=== PATIENT | female | born 1975 | race Caucasian/White ===

== ENCOUNTER 2021-03-08 18:09 | Emergency (ER) | payer MEDICAID ==
[~2021-03-08] VITALS: Ht 152.4 cm; Wt 80.0 kg
[2021-03-08] MEDS ORDERED: AMOX-424 MT (18:48)
[2021-03-08] MEDS ORDERED: ACET-2708 MT (18:48)
[2021-03-08] MEDS ORDERED: IBUP-2029 MT (18:48)
[2021-03-08 19:00] VITALS: BP 154/94
[2021-03-08] MEDS ORDERED: KETOROLAC 60MG/2ML VIAL IM ONE (19:00)
[2021-03-08] MEDS ORDERED: ACETAMINOPHEN 325MG TABLET PO ONE (19:00)
[2021-03-08] MEDS ORDERED: AMOXICILLIN/POTASSIUM CLAVULANATE 875/125MG TAB PO ONE (19:00)
== END 2021-03-08 19:04 | disposition home or self-care (01) ==
LOC: ER 18:09
DX: K04.7 Periapical abscess without sinus (principal); I10 Essential (primary) hypertension
CPT/HCPCS: 96372; 99283; J1885

== ENCOUNTER 2021-03-10 17:45 | Emergency (ER) | payer MEDICAID ==
[~2021-03-10] VITALS: Ht 152.4 cm; Wt 79.0 kg
[~2021-03-10 17:45] MED LIST: ACET-2708 MT; AMOX-424 MT; IBUP-2029 MT
[2021-03-10] MEDS ORDERED: HYDR25TA MT (18:11)
[2021-03-10] MEDS ORDERED: AMLO5TAB88 MT (18:12)
[2021-03-10 18:17] VITALS: BP 128/80
== END 2021-03-10 18:21 | disposition home or self-care (01) ==
LOC: ER 17:45
DX: Z76.0 Encounter for issue of repeat prescription (principal); I10 Essential (primary) hypertension
CPT/HCPCS: 99282

== ENCOUNTER 2021-06-12 17:31 | Emergency (ER) | payer MEDICAID ==
[~2021-06-12] VITALS: Ht 152.4 cm; Wt 82.0 kg
[~2021-06-12 17:31] MED LIST changes: +AMLO5TAB88 MT; +HYDR25TA MT
[2021-06-12] MEDS ORDERED: IBUPROFEN 800MG TABLET PO SCH (18:30)
[2021-06-12 21:38] VITALS: BP 132/77
== END 2021-06-12 21:40 | disposition home or self-care (01) ==
LOC: ER 17:31
DX: S82.832A Other fracture of upper and lower end of left fibula, initial encounter for closed fracture (principal); I10 Essential (primary) hypertension; W50.2XXA Accidental twist by another person, initial encounter; Y93.89 Activity, other specified; Y92.89 Other specified places as the place of occurrence of the external cause; Y99.8 Other external cause status
CPT/HCPCS: 29515; 73610; 73700; 99284

== ENCOUNTER 2022-03-31 11:37 | Inpatient (IN) | payer MEDICAID ==
[~2022-03-31] VITALS: Ht 152.4 cm; Wt 73.0 kg
[2022-03-31] MEDS ORDERED: SODIUM CHLORIDE 0.9% 1,000 ML IV ONE (12:45)
[2022-03-31 13:27] LABS: BASOPHILS % 0.3 % (0.0-2.0); CHLORIDE 108 mEq/L (98-107); HEMATOCRIT. 44.5 % (36.0-48.0); HEMOGLOBIN. 14.9 g/dL (12.0-16.0); LYMPHOCYTES % 16.2 % (20.0-50.0); MEAN CORPUSCULAR HEMOGLOBIN 28.4 pg (28.0-32.0); MEAN CORPUSCULAR VOLUME 84.9 fL (81.0-99.0); MEAN PLATELET VOLUME 7.7 fl (7.4-10.4); NEUTROPHILS % 71.5 % (40.0-76.0); PLATELET 247 x1000/uL (130-400); RED BLOOD CELL COUNT 5.24 mill/uL (4.2-5.4); RED CELL DISTRIBUTION WIDTH 13.3 % (11.6-14.6)
[2022-03-31 13:35] LABS: ETHANOL BLOOD < 10 mg/dL
[2022-03-31] MEDS ORDERED: POTASSIUM CHLORIDE 20MEQ TABLET SR PO NR (14:15)
[2022-03-31] MEDS ORDERED: POTASSIUM CHLORIDE INJ 30 MEQ in DEXT 5%/0.9% NACL 1,000 ML IV ONE (14:15)
[2022-03-31 15:15] LABS: CLARITY URINE CLEAR (CLEAR); KETONES URINE NEGATIVE (NEGATIVE); LEUKOCYTE ESTERASE URINE TRACE (NEGATIVE); NITRITE URINE NEGATIVE (NEGATIVE); OCCULT BLOOD URINE 1+ (NEGATIVE); PROTEIN URINE TRACE (NEGATIVE); SPECIFIC GRAVITY URINE 1.006 (1.005-1.030); UROBILINOGEN URINE 0.2 E.U./dL (0.2-1.0)
[2022-03-31 15:20] LABS: UCG SCREEN NEGATIVE
[2022-04-01 02:30] VITALS: BP 126/76
[2022-04-01 02:45] VITALS: BP 126/76
[2022-04-01] MEDS ORDERED: HYDROCODONE/ACETAMINOPHEN 5/325MG TABLET PO PRN (03:15)
[2022-04-01] MEDS ORDERED: ACETAMINOPHEN 325MG TABLET PO PRN (03:15)
[2022-04-01] MEDS ORDERED: NALOXONE HCL 0.4MG/ML VIAL IV PRN (03:30)
[2022-04-01] MEDS ORDERED: AMLO10TA80 MT (04:32)
[2022-04-01 05:53] LABS: BASOPHILS % 0.7 % (0.0-2.0); EOSINOPHILS % 0.5 % (0.0-5.0); HEMATOCRIT. 40.2 % (36.0-48.0); HEMOGLOBIN. 13.8 g/dL (12.0-16.0); LYMPHOCYTES % 41.5 % (20.0-50.0); MEAN CORPUSCULAR VOLUME 84.4 fL (81.0-99.0); MEAN PLATELET VOLUME 7.6 fl (7.4-10.4); MONOCYTES % 13.4 % (2.0-8.0); NEUTROPHILS % 43.9 % (40.0-76.0); PLATELET 266 x1000/uL (130-400); RED BLOOD CELL COUNT 4.76 mill/uL (4.2-5.4); RED CELL DISTRIBUTION WIDTH 13.5 % (11.6-14.6)
[2022-04-01 08:00] VITALS: BP 129/86
[2022-04-01 09:13] LABS: CHLORIDE 111 mEq/L (98-107)
[2022-04-01] MEDS: ASPIRIN 81MG TABLET PO SCH (09:52)
[2022-04-01] MEDS: AMLODIPINE 10MG TABLET PO SCH (09:52)
[2022-04-01] MEDS ORDERED: PNEUMOCOCCAL 23-VAL P-SAC VAC 0.5 ML IM ONE (10:00)
[2022-04-01] MEDS ORDERED: INFLUENZA VACCINE 05/PF 0.5 ML SYRINGE IM ONE (10:00)
[2022-04-01 12:00] VITALS: BP 140/83
[2022-04-01] MEDS ORDERED: ONDANSETRON HCL 4MG/2ML INJ IV PRN (12:00)
[2022-04-01 16:00] VITALS: BP 132/88
[2022-04-01 20:00] VITALS: BP_SYST 122; BP_SYST 133; BP_SYST 142; BP_DIAS 68; BP_DIAS 80; BP_DIAS 87
[2022-04-01] MEDS ORDERED: CLONIDINE 0.1MG TABLET PO PRN (20:30)
[2022-04-01] MEDS ORDERED: NON FORMULARY PATIENT HOME MED XX SCH (20:30)
[2022-04-01] MEDS ORDERED: MELATONIN 3MG TABLET PO PRN (21:00)
[2022-04-02] VITALS: BP 114/81
[2022-04-02 04:00] VITALS: BP 129/69
[2022-04-02] MEDS: ASPIRIN 81MG TABLET PO SCH (08:40)
[2022-04-02] MEDS: AMLODIPINE 10MG TABLET PO SCH (08:40)
[2022-04-02 12:00] VITALS: BP 133/78
[2022-04-02 14:09] LABS: COLOR URINE YELLOW (YELLOW)
[2022-04-02 14:15] VITALS: BP 133/78
== END 2022-04-02 15:35 | disposition home or self-care (01) | DRG 48 ==
LOC: ER 11:41 → EDBEDREQ 14:13 → 8WST 15:56 → EDBEDREQTM 16:09 → EDBEDREQ 16:09 → ENRESERV 04-01 00:45
PROVIDERS: ADMIT Internal Medicine; ATTEND Internal Medicine
DX: G90.8 Other disorders of autonomic nervous system (principal); E44.0 Moderate protein-calorie malnutrition; J06.9 Acute upper respiratory infection, unspecified; I10 Essential (primary) hypertension; E66.9 Obesity, unspecified; E87.6 Hypokalemia; Z20.822 Contact with and (suspected) exposure to COVID-19; Z68.31 Body mass index [BMI] 31.0-31.9, adult
CPT/HCPCS: 36415; 71045; 80048; 80053; 80320; 81003; 81025; 82962; 83735; 84484; 85025; 87426; 90686; 90732; 93005; 93306; 93880; 99285; C9803; J3480; J7030; J7042; G0480

== ENCOUNTER 2023-04-07 19:10 | Emergency (ER) | payer MEDICAID ==
[~2023-04-07] VITALS: Ht 154.9 cm; Wt 70.0 kg
[~2023-04-07 19:10] MED LIST changes: +AMLO10TA80 MT; -AMLO5TAB88 MT; -AMOX-424 MT
[2023-04-07 19:24] VITALS: O2SAT 99
[2023-04-07] MEDS ORDERED: IBUP-2028 MT (20:25)
[2023-04-07] MEDS ORDERED: CYCL5TAB MT (20:25)
[2023-04-07] MEDS ORDERED: TOPUD MT (20:25)
[2023-04-07] MEDS ORDERED: KETOROLAC 60MG/2ML VIAL IM NR (20:30)
[2023-04-07] MEDS ORDERED: ACETAMINOPHEN 325MG TABLET PO NR (20:30)
[2023-04-07] MEDS ORDERED: KETOROLAC 60MG/2ML VIAL IM ONE (20:30)
[2023-04-07] MEDS ORDERED: ACETAMINOPHEN 325MG TABLET PO ONE (20:30)
[2023-04-07 21:29] LABS: CLARITY URINE CLOUDY (CLEAR); COLOR URINE YELLOW (YELLOW); GLUCOSE URINE NEGATIVE (NEGATIVE); KETONES URINE NEGATIVE (NEGATIVE); LEUKOCYTE ESTERASE URINE TRACE (NEGATIVE); NITRITE URINE NEGATIVE (NEGATIVE); OCCULT BLOOD URINE 2+ (NEGATIVE); PH URINE 5.5 (4.5-8.0); PROTEIN URINE NEGATIVE (NEGATIVE); SPECIFIC GRAVITY URINE 1.031 (1.005-1.030); UROBILINOGEN URINE 0.2 E.U./dL (0.2-1.0)
[2023-04-07 21:31] VITALS: BP 164/102; PULSE 97; RESP 16; TEMP 98.2
[2023-04-07 21:45] LABS: BACTERIA URINE 1+; CALCIUM OXALATE CRYSTALS URINE 1+ /lpf; SQUAMOUS EPITHELIAL CELL URINE 2+ /lpf (RARE/1+); WBC URINE 0-2 /hpf (0-2)
== END 2023-04-07 21:34 | disposition home or self-care (01) ==
LOC: ER 19:10
DX: M54.50 Low back pain, unspecified (principal); I10 Essential (primary) hypertension; Z79.899 Other long term (current) drug therapy
CPT/HCPCS: 99283; 81003; 81025; 96372; J1885